=== PATIENT | female | born 1965 | race African-American/Black ===

== ENCOUNTER → 2018-03-02 | Outpatient (CLI) | payer OTHER ==
[~2018-03-02] MED LIST: CENESTIN1.25 MG; FLEXERIL PO; HYDROCODONE-ACE15 ML PO; HYDROCODONE-AP1 EA11 PO; IBUPROFEN 600600 M1 PO; LOSARTAN POTASS25 MG PO; MEDROLDOSEPACK PO; MOBIC15 MG PO; NAPROSYN500 MG PO; NORCO 5-325 TA1 EACH PO; ROBAXIN 750 MG750 M1 PO; VALIUM2 MG PO
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
== END ==
LOC: M.PC 05:30
DX: M54.5 Low back pain (principal); I10 Essential (primary) hypertension; G56.00 Carpal tunnel syndrome, unspecified upper limb; E66.01 Morbid (severe) obesity due to excess calories; I83.93 Asymptomatic varicose veins of bilateral lower extremities; K57.90 Diverticulosis of intestine, part unspecified, without perforation or abscess without bleeding; M79.1 Myalgia; F41.9 Anxiety disorder, unspecified